=== PATIENT | male | born 1955 | race Two or more races ===

== ENCOUNTER → 2018-06-27 | Outpatient (CLI) | payer OTHER ==
[2014-01-28 20:47] VITALS: BP 150/89
[~2018-06-27] MED LIST: CLIN150C14 PO; HYDR-2758 PO; INSU100V SQ; METF10007 PO; SULF1TAB24 PO
--- NOTE | 2018-06-27 11:12 | RAD ---
EXAM: Right knee, 3 views. HISTORY: Pain. COMPARISON: None. FINDINGS: 3 views of the right knee are obtained. There is no fracture, dislocation or subluxation. There is minimal medial and patellofemoral compartment spurring. IMPRESSION: No acute osseous finding. Minimal osteoarthritis. Electronically signed by: Philomena Brooke MD (06/27/2018 11:09 AM) [id number]
== END | disposition home or self-care (01) ==
LOC: RAD 09:45
PROVIDERS: ATTEND Pediatrics Neonatal-Perinatal Medicine
DX: M17.11 Unilateral primary osteoarthritis, right knee (principal)
CPT/HCPCS: 73562